=== PATIENT | female | born 1985 ===

== ENCOUNTER 2025-02-12 05:05 | Inpatient (IN) | payer BC ==
[2025-02-12] MEDS ORDERED: Citric Acid/Sodium Citrate Solution 30 ML Cup PO ONE (05:35)
[2025-02-12] MEDS ORDERED: Sodium Chloride 0.9% 2.5 ML Syringe FLUSH PRN (05:35)
[2025-02-12] MEDS ORDERED: Sodium Chloride 0.9% 10 ML Syringe FLUSH PRN (05:35)
[2025-02-12] MEDS ORDERED: WATER FOR INJECTION IVPUSH ONE (05:39)
[2025-02-12] MEDS ORDERED: CEFAZOLIN IVPUSH ONE (05:39)
[2025-02-12] MEDS ORDERED: STERILE IVPUSH ONE (05:39)
[2025-02-12] MEDS ORDERED: Oxytocin/0.9 % Sodium Chloride 30 UNIT/500 ML BAG IV SCH (05:45)
[2025-02-12] MEDS: Lactated Ringers 1,000 ML IV SCH (06:00)
[2025-02-12 06:07] LABS: MEAN PLATELET VOLUME 9.7 fL (9.4-12.3); NRBC ABSOLUTE 0.00 K/uL (0.00-0.02); NRBC PERCENT 0.0 /100WBC (0.0-0.2); PLATELET COUNT,PLT 337 K/uL (150-400); RED BLOOD CELL COUNT 3.92 M/uL (4.10-5.30); WHITE BLOOD CELL COUNT,WBC 13.45 K/uL (3.9-11.3)
[2025-02-12] MEDS ORDERED: Calcium Chloride 10% 1 GM/10 ML Syringe ONE (07:07)
[2025-02-12] MEDS ORDERED: fentaNYL 100 MCG/2 ML SDV ONE (07:08)
[2025-02-12] MEDS ORDERED: Morphine PF 10 MG/10 ML SDV ONE (07:08)
[2025-02-12] MEDS ORDERED: Albuterol 0.083% 2.5 MG/3 ML Neb Soln NEB PRN (07:29)
[2025-02-12] MEDS ORDERED: diphenhydrAMINE 50 MG/ML SDV IVPUSH PRN ×2 (07:29→08:47)
[2025-02-12] MEDS ORDERED: fentaNYL 100 MCG/2 ML SDV IVPUSH PRN (07:29)
[2025-02-12] MEDS ORDERED: fentaNYL 50 MCG/ML SDV IVPUSH PRN (07:29)
[2025-02-12] MEDS ORDERED: Ondansetron 4 MG/2 ML SDV IVPUSH PRN ×3 (07:29→08:47)
[2025-02-12] MEDS ORDERED: Naloxone 0.4 MG/ML SDV IVPUSH PRN ×2 (07:29→08:47)
[2025-02-12] MEDS ORDERED: Nalbuphine 10 MG/1 ML Vial IVPUSH PRN (07:29)
[2025-02-12] MEDS ORDERED: Phenylephrine 1% 10 MG/ML SDV ONE (07:48)
[2025-02-12] MEDS ORDERED: Oxytocin 10 Units/1 ML SDV ONE (07:48)
[2025-02-12] MEDS ORDERED: Ropivacaine 0.5% 5 MG/ML 30 ML SDV ONE (07:48)
[2025-02-12] MEDS ORDERED: ePHEDrine 50 MG/ML SDV ONE (07:48)
[2025-02-12] MEDS ORDERED: dexmedeTOMIDine HCl 200 MCG/2 ML SDV ONE (07:48)
[2025-02-12] MEDS ORDERED: Ondansetron 4 MG/2 ML SDV ONE (07:48)
[2025-02-12] MEDS ORDERED: Propofol 200 MG/20 ML SDV ONE (08:04)
[2025-02-12] MEDS ORDERED: Lanolin 100% Cream 7 GM Tube TOP PRN (08:47)
[2025-02-12] MEDS ORDERED: Oxytocin 10 Units/1 ML SDV IM PRN (08:47)
[2025-02-12] MEDS ORDERED: Lactated Ringers 1,000 ML IV SCH (09:00)
[2025-02-12] MEDS: Ketorolac 30 MG/ML SDV IVPUSH SCH (09:10)
[2025-02-12 10:05] LABS: PH,UMBILICAL ARTERIAL 7.19 (7.18-7.38); PH,UMBILICAL VENOUS 7.28 (7.25-7.45)
[2025-02-12] MEDS: Ondansetron 4 MG/2 ML SDV IVPUSH PRN (14:07)
[2025-02-12] MEDS ORDERED: droPERidol 2.5 MG/ML SDV IVPUSH ONE (16:56)
[2025-02-13] MEDS: Acetaminophen/oxyCODONE 325-5 MG Tab PO PRN (15:03)
[2025-02-13] MEDS: Sodium Ferric Gluconate Cmplex 125 MG in Sodium Chloride 0.9% 100 ML IV SCH (20:37)
[2025-02-14] MEDS: Acetaminophen/oxyCODONE 325-5 MG Tab PO PRN ×2 (04:49→10:48)
== END 2025-02-14 14:14 | disposition home or self-care (01) | DRG 540 ==
LOC: MW.OB 05:05
PROVIDERS: ADMIT Obstetrics & Gynecology; ATTEND Obstetrics & Gynecology
PROC: 4A1HXCZ Monitoring of Products of Conception, Cardiac Rate, External Approach (ICD-10-PCS; 2025-02-12)
PROC: 10D00Z1 Extraction of Products of Conception, Low, Open Approach (ICD-10-PCS; principal; 2025-02-12 08:00)
DX: O32.1XX0 Maternal care for breech presentation, not applicable or unspecified (principal); Z3A.39 39 weeks gestation of pregnancy; Z37.0 Single live birth; O90.81 Anemia of the puerperium
CPT/HCPCS: 01961; 36415; 59025; 64999; 82803; 85014; 85018; 85027; 86592; 86850; 86900; 86901; A9270-GY; J0690; J1885; J2274; J2371; J2405; J2590; J2704; J2765; J2795; J2916; J3010; J3490; J7120